=== PATIENT | male | born 1985 | race Caucasian/White ===

== ENCOUNTER 2018-01-21 19:34 | Emergency (ER) | payer OTHER ==
[2018-01-21] MEDS ORDERED: GENTAMICIN 0.3% OPHTH SOL 1 DROP OPHTH ONE (19:35)
[2018-01-21 19:50] VITALS: BP 147/87; TEMP 98.9; O2SAT 97
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
== END 2018-01-21 20:21 | disposition home or self-care (01) ==
LOC: ER 19:34
DX: S05.02XA Injury of conjunctiva and corneal abrasion without foreign body, left eye, initial encounter (principal); I10 Essential (primary) hypertension; I51.9 Heart disease, unspecified; K21.9 Gastro-esophageal reflux disease without esophagitis; Z87.891 Personal history of nicotine dependence; W22.8XXA Striking against or struck by other objects, initial encounter; Y92.9 Unspecified place or not applicable

== ENCOUNTER → 2019-04-25 | Outpatient (CLI) | payer OTHER ==
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
== END ==
LOC: LAB.O 12:02
PROVIDERS: ATTEND Nurse Practitioner Family
DX: L03.211 Cellulitis of face (principal)